=== PATIENT | male | born 1965 | race Two or more races ===

== ENCOUNTER → 2021-08-19 | Emergency (ER) | payer OTHER ==
[~2021-08-19] VITALS: Ht 170.2 cm; Wt 68.0 kg
[~2021-08-19] MED LIST: ASA81 MG; CARDURA1 MG; COZAAR100 MG; DIOVAN160 M1 PO; HYDROCHLOROTHIA25 MG; NORVASC10 MG; PROAIR HFA8.5 GM; SYMBICORT 16010.2 GM; UROXATRAL10 MG
== END | disposition left against medical advice (07) ==
LOC: ER 02:46
DX: Z53.21 Procedure and treatment not carried out due to patient leaving prior to being seen by health care provider (principal)

== ENCOUNTER → 2021-08-21 | Emergency (ER) | payer OTHER ==
[~2021-08-21] VITALS: Ht 152.4 cm; Wt 68.0 kg
== END | disposition left against medical advice (07) ==
LOC: ER 17:52
DX: Z53.20 Procedure and treatment not carried out because of patient's decision for unspecified reasons (principal)